=== PATIENT | female | born 1930 | race Caucasian/White ===

== ENCOUNTER 2016-06-19 11:43 | Day surgery (SDC) | payer MEDICARE, OTHER ==
[~2016-06-19] VITALS: Ht 167.6 cm; Wt 59.0 kg
[~2016-06-19 11:43] MED LIST: 0.9% Sodium Chloride 1,000 ML IV PRN; ALEN35TA31 PO; ASPI325T32 PO; CALC600T12 PO; CYAN500 PO; LISI2.5T PO; NORT10CA PO; OMEG-38 PO; Sodium Chloride LOK Flush 10 mL Syringe IV PRN; VIT1CAPS10 PO; fentaNYL-PF 50 mCg/mL 2 mL Inj IVPUSH PRN
[2016-06-19 12:07] VITALS: BP 149/87; PULSE 82; RESP 16; O2SAT 100
[2016-06-19] MEDS ORDERED: TRIA1CAP5 PO (12:12)
[2016-06-19 13:15] VITALS: BP 139/75; PULSE 79; RESP 16; O2SAT 100
--- NOTE | 2016-06-19 13:20 | PCM.ENDCOL ---
Colonoscopy Date of Service: Jun 19, 2016 Physician Pedro Sosa MD Pre Procedure Diagnosis: Personal history of colon cancer Post Procedure Dx & Findings: Polyps hemorrhoids diverticula Procedure Colonoscopy Prep adequate PROCEDURE IN DETAIL: After unremarkable rectal examination Olympus video colonoscope was inserted into patient's anal canal is advanced to cecum. Landmarks identified including the ileocecal valve and appendiceal orifice. Scope was withdrawn systematically. In the ascending colon, there was a 6-7 mm flat polyp which was removed completely using cold snare. In the transverse colon there was another 5 mm flat polyp which was removed completely with cold snare. In the descending colon there was another 5 mm polyp which was removed completely using cold snare. In the sigmoid colon there were two 2 mm polyps which were removed completely using cold snare. One polyp was destroyed during retrieval process. And we were not able to retrieve it. The mucosa of the cecum, ascending, transverse, descending, sigmoid, rectal mucosa lined with whitish, pink, smooth, glistening, normal-appearing mucosa, normal fine branching, underlying vascularity, normal haustra. The patient tolerated procedure and was transported to observation area. In the sigmoid colon there were several medium size diverticula. In the rectum retroflexion was done which showed hemorrhoids anal canal was inspected carefully on the way out and hemorrhoids noted. Impression Polyps 5 status post complete removal. We were not able to retrieve one of the 2 mm polyp. Diverticuli Hemorrhoids Personal history of colon polyp and cancer Recommendation Diverticular diet Acolonoscopy in 3 years. However patient should be evaluated at this time. Presedation Assessment Risks and Benefits Informed consent was obtained from the patient after all risks and benefits including but not limited to drug reaction, infection, pain, bleeding, perforation, as well as alternatives were discussed. Patient monitoring Continuous pulse oximetry, cardiac monitoring, blood pressure monitoring, IV access, and oxygen at 2L per nasal cannula. Periprocedural Fentanyl: Fentanyl 50mcg Incrementally Midazolam: Midazolam 2mg Incrementally Complications There were no periprocedural complications identified. Post Procedure Plan Post Procedure Recommendations 1. Restrict activities today. 2. Resume normal activities in the morning. 3. Resume medications. 4. Patient informed of normal post procedure side effects as bloating, drowsiness, blood streaking in the stool. 5. average risk CRCS. If colon polyps come back as: -Hyperplastic- can repeat colonoscopy in 10 years -Tubular adenoma- repeat colonoscopy in 5 years -Tubulovillous/villous adenoma- repeat colonoscopy in 3 years -If any dysplasia- return to clinic as soon as possible 6. Please don't hesitate to call me with any questions. Pedro Sosa MD Jun 19, 2016 13:20
[2016-06-19 13:27] VITALS: BP 134/79; PULSE 78; RESP 12; O2SAT 100
--- NOTE | 2016-06-20 12:38 | PATH ---
SURGICAL PATHOLOGY Attending Physician:Pedro Sosa M.D. CASE STATUS: Signed Out PATIENT NAME: TRISTON MITCHELL PID: [id number] : 1930 DATE COLLECTED:06/19/2016 19:49 SPECIMEN: 1: Colon, Biopsy 2: Colon, Biopsy 3: Colon, Biopsy 4: Colon, Biopsy CLINICAL HISTORY: 1). ASCENDING COLON POLYP 2). TRANSVERSE COLON POLYP 3). DESCENDING COLON POLYP 4). 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 2.TRANSVERSE COLON POLYP: SESSILE SERRATED ADENOMA 3.DESCENDING COLON POLYP: TUBULAR ADENOMA INVOLVING BOTH BIOPSY FRAGMENTS. 4.SIGMOID COLON POLYPS: TUBULAR ADENOMA. ICD10 CODE D12.4 GROSS DESCRIPTION: The specimen is received in four formalin filled containers labeled with the patient's name. 1). The specimen is sublabeled "ascending colon polyp" and consists of 3 portions of tissue which aggregate to 0.4 x 0.4 x 0.2 CM. The specimen is entirely submitted in cassette 1A. 2). The specimen is sublabeled "transverse colon polyp" and consists of a 0.6 x 0.5 x 0.3 CM portion of tissue which is entirely submitted in cassette 2A. 3). The specimen is sublabeled "descending colon polyp" and consists of 2 portions of tissue which aggregate to 0.4 x 0.4 x 0.3 CM. The specimen is entirely submitted in cassette 3A. 4). The specimen is sublabeled "sigmoid colon polyp" and consists of a 0.3 x 0.3 x 0.3 CM portion of tissue which is entirely submitted in cassette 4A. 06/19/2016 DAC MICRO DESCRIPTION: See diagnosis. ICD-9 CODES: CPT CODES: 1: 02144 2: 49285 3: 06186 4: 44312 Electronically Signed Out Ambrosio Mooney MD [facility] [address], [place] [address] Technical component performed at [facility], [facility] [address], [place], [address]
== END 2016-06-19 23:59 | disposition home or self-care (01) ==
LOC: END 11:43
PROVIDERS: ATTEND Internal Medicine
DX: Z12.11 Encounter for screening for malignant neoplasm of colon (principal); Z85.038 Personal history of other malignant neoplasm of large intestine; D12.2 Benign neoplasm of ascending colon; D12.3 Benign neoplasm of transverse colon; D12.4 Benign neoplasm of descending colon; D12.5 Benign neoplasm of sigmoid colon; K57.30 Diverticulosis of large intestine without perforation or abscess without bleeding; I10 Essential (primary) hypertension; Z79.82 Long term (current) use of aspirin
CPT/HCPCS: 45385; 88305; 99153; G0500; J2250; J3010; J7030